=== PATIENT | female | born 1990 | race Native Hawaiian/Other Pacific Islander ===

== ENCOUNTER 2016-05-03 09:36 | Outpatient (CLI) | payer OTHER | END 2016-05-03 19:20 | disposition home or self-care (01) | LOC: US 09:36 | DX: R10.13 Epigastric pain (principal) ==

== ENCOUNTER 2017-10-19 18:19 | Emergency (ER) | payer BC ==
[~2017-10-19] VITALS: Ht 154.9 cm; Wt 64.4 kg
[2017-10-19 19:24] LABS: PLATELET COUNT 201 K/uL (152-353)
[2017-10-19 23:09] VITALS: BP 121/67; TEMP 98.2
== END 2017-10-19 23:07 | disposition home or self-care (01) ==
LOC: ED 18:19
DX: N83.201 Unspecified ovarian cyst, right side (principal); D25.9 Leiomyoma of uterus, unspecified
CPT/HCPCS: 36415; 80053; 81000; 81025; 85027; 96361; 96365; 96374; 96375; 99284; J1885; J2405; J7120

== ENCOUNTER 2018-01-26 08:51 | Emergency (ER) | payer BC ==
[~2018-01-26] VITALS: Ht 154.9 cm; Wt 63.5 kg
[2018-01-26 08:57] VITALS: TEMP 97.9
[2018-01-26 10:52] LABS: PLATELET COUNT 229 K/uL (152-353)
[2018-01-26 12:30] VITALS: BP 109/69
== END 2018-01-26 12:35 | disposition home or self-care (01) ==
LOC: ED 08:51
PROVIDERS: Allergy & Immunology
DX: R10.84 Generalized abdominal pain (principal)
CPT/HCPCS: 36415; 80053; 81000; 81025; 85027; 99283

== ENCOUNTER 2018-10-16 22:39 | Emergency (ER) | payer BC ==
[~2018-10-16] VITALS: Ht 154.9 cm; Wt 63.5 kg
[2018-10-17 00:34] LABS: PLATELET COUNT 261 K/uL (152-353)
[2018-10-17 00:35] VITALS: BP 120/68; TEMP 97.9
[2018-10-17 00:42] LABS: POTASSIUM 4.2 mmol/L (3.6-5.2)
== END 2018-10-17 06:18 | disposition home or self-care (01) ==
LOC: ED 22:39
PROVIDERS: Emergency Medicine
DX: M27.3 Alveolitis of jaws (principal); D64.89 Other specified anemias
CPT/HCPCS: 36415; 80053; 84702; 85027; 96360; 99284; Q9963